=== PATIENT | female | born 1945 | race African-American/Black ===

== ENCOUNTER 2017-09-15 09:33 | Inpatient (IN) | payer OTHER, BC ==
[~2017-09-15] VITALS: Ht 165.1 cm; Wt 61.1 kg
[2017-09-15 10:41] LABS: BASOPHIL (%) 1.1 % (0-1); BASOPHIL COUNT 0.1 K/uL (0-0.1); EOSINOPHIL (%) 2.3 % (0-5); EOSINOPHIL COUNT 0.1 K/uL (0-0.3); HEMATOCRIT 42.8 % (36.0-46.0); HEMOGLOBIN 14.1 G/DL (11.9-15.5); IMMATURE GRANULOCYTE (%) 0.2 % (0.0-0.7); LYMPHOCYTE (%) 36.5 % (15-42); MCH 27.4 PG (29.0-34.0); MCHC 32.9 G/DL (30.0-36.0); MCV 83.1 FL (83-99); MONOCYTE (%) 7.9 % (3-12); MONOCYTE COUNT 0.4 K/uL (0-0.8); NEUTROPHIL COUNT 2.9 K/uL (1.8-6.4); PLATELET COUNT 329 K/uL (156-360); RBC DIS.WIDTH-CV 13.1 % (11.8-14.6); RBC DIS.WIDTH-SD 39.7 % (39-53); RED BLOOD COUNT 5.15 M/uL (3.80-5.20); WHITE BLOOD COUNT 5.5 K/uL (4.1-10.2)
[2017-09-15 10:51] LABS: CHLORIDE 103 mEq/L (99-109); POTASSIUM 3.8 mEq/L (3.7-5.4); SODIUM 140 mEq/L (136-147)
[2017-09-15 10:52] LABS: GLUCOSE 172 mg/dL (70-99)
[2017-09-15 10:56] LABS: CREATININE 0.9 mg/dL (0.6-1.3); GFR ESTIMATE (CALCULATED) > 59 mL/min/
[2017-09-15 10:57] LABS: UREA NITROGEN (BUN) 19 mg/dL (9-23)
[2017-09-15] MEDS ORDERED: TENORETIC 501 TABLET PO (13:04)
[2017-09-15] MEDS ORDERED: ZOCOR20 MG PO (13:04)
[2017-09-15] MEDS ORDERED: LO-DOSE ASPIRIN81 M1 PO (13:05)
[2017-09-15] MEDS ORDERED: NORVASC5 MG PO (13:05)
[2017-09-15] MEDS ORDERED: VITAMIN D31000 UNI2 PO (13:06)
[2017-09-15] MEDS ORDERED: BONIVA150 MG PO (13:07)
[2017-09-15] MEDS ORDERED: NORCO 5/3251 TABLET PO (13:15)
[2017-09-15] MEDS ORDERED: GLUCOPHAGE1000 MG PO (13:16)
[2017-09-15] MEDS ORDERED: CALCIUM 500 +1 EAC2 PO (13:16)
[2017-09-16] VITALS (7 sets, daily range): BP systolic 118–151; BP diastolic 63–82
[2017-09-16 06:52] LABS: HEMOGLOBIN 13.7 G/DL (11.9-15.5); MCH 27.3 PG (29.0-34.0); MCHC 32.6 G/DL (30.0-36.0); MCV 83.7 FL (83-99); PLATELET COUNT 357 K/uL (156-360); RBC DIS.WIDTH-CV 13.2 % (11.8-14.6); RBC DIS.WIDTH-SD 39.8 % (39-53); RED BLOOD COUNT 5.02 M/uL (3.80-5.20); WHITE BLOOD COUNT 8.9 K/uL (4.1-10.2)
[2017-09-16 07:22] LABS: CHLORIDE 102 MEQ/L (99-109); CREATININE 1.2 MG/DL (0.6-1.3); GFR ESTIMATE (CALCULATED) 57 mL/min/; GLUCOSE 227 mg/dL (70-99); POTASSIUM 4.4 MEQ/L (3.7-5.4); SODIUM 137 MEQ/L (136-147)
[2017-09-16 07:23] LABS: UREA NITROGEN (BUN) 33 mg/dL (9-23)
[2017-09-17 03:22] VITALS: BP 120/64
[2017-09-17 07:13] LABS: PTT 24.9 SEC (25-37)
[2017-09-17 07:26] LABS: CHLORIDE 107 MEQ/L (99-109); GFR ESTIMATE (CALCULATED) > 59 mL/min/; GLUCOSE 217 mg/dL (70-99); POTASSIUM 4.3 MEQ/L (3.7-5.4); SODIUM 141 MEQ/L (136-147); UREA NITROGEN (BUN) 30 mg/dL (9-23)
[2017-09-17 07:50] VITALS: BP 134/69
[2017-09-17 11:45] VITALS: BP 146/69
[2017-09-17 16:07] VITALS: BP 146/78
[2017-09-17 19:13] VITALS: BP 117/56
[2017-09-17 23:36] VITALS: BP 104/56
[2017-09-18] VITALS (8 sets, daily range): BP systolic 109–145; BP diastolic 58–77
[2017-09-18 07:38] LABS: CHLORIDE 108 MEQ/L (99-109); GFR ESTIMATE (CALCULATED) > 59 mL/min/; GLUCOSE 209 mg/dL (70-99); POTASSIUM 4.5 MEQ/L (3.7-5.4); SODIUM 142 MEQ/L (136-147); UREA NITROGEN (BUN) 33 mg/dL (9-23)
[2017-09-19 03:17] VITALS: BP 121/67
[2017-09-19 07:15] VITALS: BP 100/75
[2017-09-19 09:38] VITALS: BP 136/68
[2017-09-19 11:00] VITALS: BP 140/73
[2017-09-19] MEDS ORDERED: STIOLTO RESPIMAT4 GM IH (12:31)
[2017-09-19] MEDS ORDERED: BLOOD PRESSURE1 EA11 MC (12:31)
[2017-09-19] MEDS ORDERED: DEXAMETHASONE4 MG PO (12:31)
== END 2017-09-19 15:15 | disposition home or self-care (01) | DRG 54 ==
LOC: EME 09:33 → EDOF 14:03 → 5EAST 14:03 → ENRESERV 14:04 → EDOF 14:14 → ENRESERV 14:16 → 5EAST 19:50
PROVIDERS: Emergency Medicine; Hospitalist; Internal Medicine; Radiology Diagnostic Radiology
PROC: 0BBL3ZX Excision of Left Lung, Percutaneous Approach, Diagnostic (ICD-10-PCS; principal; 2017-09-18)
DX: C79.31 Secondary malignant neoplasm of brain (principal); C34.32 Malignant neoplasm of lower lobe, left bronchus or lung; E11.9 Type 2 diabetes mellitus without complications; I10 Essential (primary) hypertension; R42 Dizziness and giddiness; R11.10 Vomiting, unspecified; E78.5 Hyperlipidemia, unspecified; R91.8 Other nonspecific abnormal finding of lung field; J43.9 Emphysema, unspecified; G93.6 Cerebral edema; Z90.710 Acquired absence of both cervix and uterus; Z87.891 Personal history of nicotine dependence
CPT/HCPCS: 70450; 70553; 71045; 71260; 74177; 77012; 77290; 77307; 77331; 77334; 77412; 77417; 80048; 82948; 85025; 85027; 85610; 85730; 88305; 88341 TC; 88342 TC; 93005; 94640; 94640 76; 99202; 99281; 99285; J1100; J1650; J1815; J1953; J2405; J3010; J7030; J7050; J8540

== ENCOUNTER 2017-10-18 | Inpatient (IN) | payer OTHER, BC ==
[~2017-10-18] VITALS: Ht 165.1 cm; Wt 53.2 kg
[2017-10-18] VITALS (14 sets, daily range): BP systolic 62–142; BP diastolic 40–84
[~2017-10-18] MED LIST: BLOOD PRESSURE1 EA11 MC; BONIVA150 MG PO; CALCIUM 500 +1 EAC2 PO; DEXAMETHASONE4 MG PO; GLUCOPHAGE1000 MG PO; LO-DOSE ASPIRIN81 M1 PO; NORCO 5/3251 TABLET PO; NORVASC5 MG PO; ONDANSETRON HCL8 MG PO; PROCHLORPERAZIN10 MG PO; STIOLTO RESPIMAT4 GM IH; TENORETIC 501 TABLET PO; VITAMIN D31000 UNI2 PO; ZOCOR20 MG PO
[2017-10-18 01:03] LABS: ALBUMIN 2.8 g/dL (3.2-4.8); CHLORIDE 104 mEq/L (99-109); SODIUM 131 mEq/L (136-147)
[2017-10-18 01:06] LABS: GLUCOSE 361 mg/dL (70-99)
[2017-10-18 01:07] LABS: TOTAL BILIRUBIN 0.3 mg/dL (0.0-1.0)
[2017-10-18 01:09] LABS: ALKALINE PHOSPHATASE 75 IU/L (3-129); CREATININE 2.9 mg/dL (0.6-1.3); GFR ESTIMATE (CALCULATED) 20 mL/min/
[2017-10-18 01:10] LABS: TROP-I INTERPRETATION NEGATIVE; TROPONIN-I < 0.01 ng/mL (0.0-0.30); UREA NITROGEN (BUN) 69 mg/dL (9-23)
[2017-10-18 01:11] LABS: AST (GOT) 19 IU/L (2-34)
[2017-10-18 01:12] LABS: ALT (GPT) 27 IU/L (3-49)
[2017-10-18 01:57] LABS: EOSINOPHIL ABS CT 0; HEMATOCRIT 49.7 % (36.0-46.0); MCH 27.3 PG (29.0-34.0); MCHC 30.2 G/DL (30.0-36.0); MCV 90.4 FL (83-99); PLAT.SUFFICIENCY ADEQUATE; PLATELET COUNT 242 K/uL (156-360); RBC DIS.WIDTH-CV 14.8 % (11.8-14.6); WHITE BLOOD COUNT 1.1 K/uL (4.1-10.2)
[2017-10-18 03:14] LABS: POTASSIUM 6.2 mEq/L (3.7-5.4)
[2017-10-18 06:02] LABS: CHLORIDE 112 mEq/L (99-109); POTASSIUM 5.5 mEq/L (3.7-5.4)
[2017-10-18 06:04] LABS: GLUCOSE 203 mg/dL (70-99)
[2017-10-18 06:09] LABS: UREA NITROGEN (BUN) 66 mg/dL (9-23)
[2017-10-18 06:15] LABS: APPEARANCE CLOUDY ((CLEAR)); BILIRUBIN NEGATIVE; BLOOD LARGE; COLOR AMBER ((YELLOW)); GLUCOSE (STRIP) 50; KETONES NEGATIVE; LEUKOCYTES MODERATE; NITRITE NEGATIVE; PROTEIN (STRIP) 100; UROBILINOGEN 0.2 MG/DL (0.2-1.0)
[2017-10-18 06:23] LABS: CREATININE 2.4 mg/dL (0.6-1.3); GFR ESTIMATE (CALCULATED) 25 mL/min/; SODIUM 139 mEq/L (136-147)
[2017-10-18 06:36] LABS: RED BLOOD CELLS 20-30 /HPF (0-5); WHITE BLOOD CELLS 30-40 /HPF (0-5)
[2017-10-18 06:37] LABS: BACTERIA 3+ /HPF; EPITHELIAL CELLS 1+ /HPF; MUCUS 1+ /LPF; UCUL ADDED? YES
[2017-10-18 06:39] LABS: AMORPHOUS URATES CRYSTALS 1+
[2017-10-18] MEDS ORDERED: DECADRON4 M1 PO (11:10)
[2017-10-18 12:35] LABS: CHLORIDE 111 MEQ/L (99-109); GFR ESTIMATE (CALCULATED) 31 mL/min/; GLUCOSE 234 mg/dL (70-99); PHOSPHORUS 4.6 mg/dL (2.5-4.9); POTASSIUM 5.3 MEQ/L (3.7-5.4); SODIUM 139 MEQ/L (136-147); UREA NITROGEN (BUN) 58 mg/dL (9-23)
[2017-10-18 12:44] LABS: CARBON DIOXIDE (BICARBONATE) < 10.0 MEQ/L (20-31)
[2017-10-18 17:08] LABS: CHLORIDE 115 MEQ/L (99-109); GFR ESTIMATE (CALCULATED) 31 mL/min/; GLUCOSE 147 mg/dL (70-99); PHOSPHORUS 4.2 mg/dL (2.5-4.9); SODIUM 144 MEQ/L (136-147); UREA NITROGEN (BUN) 57 mg/dL (9-23)
[2017-10-18 21:00] LABS: CHLORIDE 117 MEQ/L (99-109); CREATININE 1.9 MG/DL (0.6-1.3); GFR ESTIMATE (CALCULATED) 33 mL/min/; GLUCOSE 188 mg/dL (70-99); PHOSPHORUS 3.7 mg/dL (2.5-4.9); POTASSIUM 4.9 MEQ/L (3.7-5.4); SODIUM 142 MEQ/L (136-147); UREA NITROGEN (BUN) 57 mg/dL (9-23)
[2017-10-19] VITALS (32 sets, daily range): BP systolic 72–119; BP diastolic 39–78
[2017-10-19 01:10] LABS: CHLORIDE 117 mEq/L (99-109); POTASSIUM 4.8 mEq/L (3.7-5.4); SODIUM 141 mEq/L (136-147)
[2017-10-19 01:12] LABS: GLUCOSE 218 mg/dL (70-99)
[2017-10-19 01:16] LABS: CREATININE 1.6 mg/dL (0.6-1.3); GFR ESTIMATE (CALCULATED) 41 mL/min/
[2017-10-19 01:17] LABS: UREA NITROGEN (BUN) 55 mg/dL (9-23)
[2017-10-19 04:50] LABS: HEMATOCRIT 33.6 % (36.0-46.0); HEMOGLOBIN 11.4 G/DL (11.9-15.5); MCH 27.5 PG (29.0-34.0); MCHC 33.9 G/DL (30.0-36.0); RBC DIS.WIDTH-CV 14.5 % (11.8-14.6); RBC DIS.WIDTH-SD 42.1 % (39-53); RED BLOOD COUNT 4.15 M/uL (3.80-5.20)
[2017-10-19 05:20] LABS: CHLORIDE 116 mEq/L (99-109); POTASSIUM 4.5 mEq/L (3.7-5.4); SODIUM 139 mEq/L (136-147)
[2017-10-19 05:22] LABS: GLUCOSE 373 mg/dL (70-99)
[2017-10-19 05:25] LABS: PHOSPHORUS 3.4 mg/dL (2.5-4.9)
[2017-10-19 05:26] LABS: CREATININE 1.5 mg/dL (0.6-1.3); GFR ESTIMATE (CALCULATED) 44 mL/min/
[2017-10-19 05:27] LABS: UREA NITROGEN (BUN) 51 mg/dL (9-23)
[2017-10-19 07:06] LABS: ABS NEUTROPHIL COUNT 0.7; ANISOCYTOSIS 1+; BURR CELLS 2+; EOSINOPHIL ABS CT 0; MONOCYTES 5.9 % (0-9.0); MYELOCYTES 6.9 %; PLAT.SUFFICIENCY ADEQUATE; POIKILOCYTOSIS 2+
[2017-10-19 07:07] LABS: BAND NEUTROPHILS 40.6 % (0-8.0); LYMPHOCYTES 6.9 % (15.0-45.0); SEG.NEUTROPHILS 32.7 % (46.0-76.0)
[2017-10-19 08:27] LABS: CHLORIDE 118 MEQ/L (99-109); CREATININE 1.5 MG/DL (0.6-1.3); GFR ESTIMATE (CALCULATED) 44 mL/min/; GLUCOSE 215 mg/dL (70-99); PHOSPHORUS 3.1 mg/dL (2.5-4.9); POTASSIUM 4.2 MEQ/L (3.7-5.4); SODIUM 144 MEQ/L (136-147); UREA NITROGEN (BUN) 46 mg/dL (9-23)
[2017-10-19 10:20] LABS: HEMOGLOBIN A1c (GLYCOHEMOGLOB) 11.1 % (Below 5.7)
[2017-10-19 12:53] LABS: CHLORIDE 115 MEQ/L (99-109); CREATININE 1.3 MG/DL (0.6-1.3); GFR ESTIMATE (CALCULATED) 52 mL/min/; GLUCOSE 264 mg/dL (70-99); MAGNESIUM 1.3 mg/dl (1.3-2.7); POTASSIUM 4.2 MEQ/L (3.7-5.4); SODIUM 142 MEQ/L (136-147); UREA NITROGEN (BUN) 42 mg/dL (9-23)
[2017-10-19 13:37] LABS: C DIFF TOXIN NEGATIVE (NEGATIVE)
[2017-10-19 16:55] LABS: CHLORIDE 111 MEQ/L (99-109); CREATININE 1.2 MG/DL (0.6-1.3); GFR ESTIMATE (CALCULATED) 57 mL/min/; GLUCOSE 296 mg/dL (70-99); MAGNESIUM 1.6 mg/dl (1.3-2.7); PHOSPHORUS 2.8 mg/dL (2.5-4.9); POTASSIUM 3.7 MEQ/L (3.7-5.4); SODIUM 140 MEQ/L (136-147); UREA NITROGEN (BUN) 39 mg/dL (9-23)
[2017-10-20] VITALS (21 sets, daily range): BP systolic 79–127; BP diastolic 50–79
[2017-10-20 05:13] LABS: CHLORIDE 115 mEq/L (99-109); POTASSIUM 3.7 mEq/L (3.7-5.4); SODIUM 140 mEq/L (136-147)
[2017-10-20 05:14] LABS: MAGNESIUM 1.6 mg/dL (1.3-2.7)
[2017-10-20 05:15] LABS: GLUCOSE 267 mg/dL (70-99)
[2017-10-20 05:19] LABS: CREATININE 1.1 mg/dL (0.6-1.3); GFR ESTIMATE (CALCULATED) > 59 mL/min/; PHOSPHORUS 2.7 mg/dL (2.5-4.9)
[2017-10-20 05:20] LABS: UREA NITROGEN (BUN) 37 mg/dL (9-23)
[2017-10-20 05:33] LABS: HEMOGLOBIN 10.9 G/DL (11.9-15.5); MCH 27.5 PG (29.0-34.0); MCHC 34.1 G/DL (30.0-36.0); MCV 80.8 FL (83-99); RBC DIS.WIDTH-CV 13.8 % (11.8-14.6); RBC DIS.WIDTH-SD 40.8 % (39-53); RED BLOOD COUNT 3.96 M/uL (3.80-5.20)
[2017-10-20 06:00] LABS: WHITE BLOOD COUNT 1.8 K/uL (4.1-10.2)
[2017-10-20 07:22] LABS: ABS NEUTROPHIL COUNT 1.2; ANISOCYTOSIS 1+; BAND NEUTROPHILS 40.4 % (0-8.0); EOSINOPHIL ABS CT 0; GIANT PLATELETS 2+; LYMPHOCYTES 7.1 % (15.0-45.0); MICROCYTOSIS 1+; PLAT.SUFFICIENCY DECREASED; PLATELET CLUMPS PRESENT - PLATELET COUNTS APPEARS DECREASED; SEG.NEUTROPHILS 28.3 % (46.0-76.0)
[2017-10-20 07:23] LABS: MONOCYTES 17.2 % (0-9.0); PLATELET COUNT UNABLE TO REPORT K/uL (156-360)
[2017-10-21] VITALS (18 sets, daily range): BP systolic 96–141; BP diastolic 59–104
[2017-10-21 11:22] LABS: HEMATOCRIT 30.5 % (36.0-46.0); HEMOGLOBIN 10.1 G/DL (11.9-15.5); MCH 26.4 PG (29.0-34.0); MCHC 33.1 G/DL (30.0-36.0); MCV 79.6 FL (83-99); NRBC (%) 1.3 /100 WBC (0-0); RBC DIS.WIDTH-CV 14.3 % (11.8-14.6); RED BLOOD COUNT 3.83 M/uL (3.80-5.20)
[2017-10-21 11:30] LABS: CHLORIDE 115 MEQ/L (99-109); GFR ESTIMATE (CALCULATED) > 59 mL/min/; GLUCOSE 196 mg/dL (70-99); SODIUM 140 MEQ/L (136-147); UREA NITROGEN (BUN) 27 mg/dL (9-23)
[2017-10-21 11:39] LABS: PLAT.SUFFICIENCY DECREASED; PLATELET CLUMPS PRESENT - PLATELET COUNTS APPEARS DECREASED; PLATELET COUNT UNABLE TO REPORT K/uL (156-360)
[2017-10-21 14:25] LABS: MAGNESIUM 2.1 mg/dl (1.3-2.7); PHOSPHORUS 1.7 mg/dL (2.5-4.9)
[2017-10-21 14:39] LABS: ALBUMIN < 1.5 G/DL (3.2-4.8)
[2017-10-22] VITALS (8 sets, daily range): BP systolic 105–126; BP diastolic 56–86
[2017-10-22 06:35] LABS: ALBUMIN 1.7 G/DL (3.2-4.8); ALKALINE PHOSPHATASE 65 IU/L (3-129); ALT (GPT) 13 IU/L (3-49); AST (GOT) 8 IU/L (2-34); CHLORIDE 115 MEQ/L (99-109); CREATININE 1.2 MG/DL (0.6-1.3); GFR ESTIMATE (CALCULATED) 57 mL/min/; GLUCOSE 170 mg/dL (70-99); POTASSIUM 3.2 MEQ/L (3.7-5.4); SODIUM 142 MEQ/L (136-147); TOTAL BILIRUBIN 0.3 MG/DL (0.0-1.0); TOTAL PROTEIN 3.7 G/DL (6.4-8.3); UREA NITROGEN (BUN) 31 mg/dL (9-23)
[2017-10-22 06:38] LABS: HEMATOCRIT 37.1 % (36.0-46.0); MCH 26.7 PG (29.0-34.0); MCHC 32.9 G/DL (30.0-36.0); MCV 81.2 FL (83-99); NRBC (%) 1.5 /100 WBC (0-0); RBC DIS.WIDTH-CV 14.6 % (11.8-14.6); RBC DIS.WIDTH-SD 42.8 % (39-53); RED BLOOD COUNT 4.57 M/uL (3.80-5.20); WHITE BLOOD COUNT 3.3 K/uL (4.1-10.2)
[2017-10-22 06:44] LABS: HEMOGLOBIN 12.2 G/DL (11.9-15.5); PLATELET COUNT 63 K/uL (156-360)
[2017-10-22 07:02] LABS: MAGNESIUM 2.1 mg/dl (1.3-2.7)
[2017-10-22 07:03] LABS: PHOSPHORUS 2.3 mg/dL (2.5-4.9)
[2017-10-22 07:10] LABS: ABS NEUTROPHIL COUNT 1.9; BURR CELLS 2+; EOSINOPHIL ABS CT 0; METAMYELOCYTES 5.3 %; MONOCYTES 17.9 % (0-9.0); MYELOCYTES 0.9 %; NUCLEATED RBC'S 7.1; PLAT.SUFFICIENCY DECREASED; POIKILOCYTOSIS 2+
[2017-10-22 07:13] LABS: BAND NEUTROPHILS 8.9 % (0-8.0)
[2017-10-23 03:23] VITALS: BP 115/78
[2017-10-23 06:32] LABS: CHLORIDE 116 MEQ/L (99-109); PHOSPHORUS 2.6 mg/dL (2.5-4.9); SODIUM 143 MEQ/L (136-147); UREA NITROGEN (BUN) 41 mg/dL (9-23)
[2017-10-23 06:34] LABS: CREATININE 1.8 MG/DL (0.6-1.3); GFR ESTIMATE (CALCULATED) 36 mL/min/; GLUCOSE 309 mg/dL (70-99); POTASSIUM 3.9 MEQ/L (3.7-5.4)
[2017-10-23 06:52] LABS: HEMATOCRIT 34.2 % (36.0-46.0); MCH 26.6 PG (29.0-34.0); MCHC 32.2 G/DL (30.0-36.0); MCV 82.6 FL (83-99); NRBC (%) 0.6 /100 WBC (0-0); RBC DIS.WIDTH-CV 15.1 % (11.8-14.6); RBC DIS.WIDTH-SD 45.1 % (39-53); RED BLOOD COUNT 4.14 M/uL (3.80-5.20); WHITE BLOOD COUNT 3.3 K/uL (4.1-10.2)
[2017-10-23 07:10] LABS: ABS NEUTROPHIL COUNT 2.2; ANISOCYTOSIS 1+; ATYPICAL LYMPHOCYTE 1.8 %; BAND NEUTROPHILS 43.5 % (0-8.0); EOSINOPHIL ABS CT 0; IMM.PLATELET FRACTION 16.5 (1-7); LYMPHOCYTES 10.4 % (15.0-45.0); METAMYELOCYTES 7.8 %; MICROCYTOSIS 1+; MONOCYTES 12.2 % (0-9.0); MYELOCYTES 1.7 %; NUCLEATED RBC'S 3.5; PLAT.SUFFICIENCY VERY DECREASED; PLATELET CLUMPS PRESENT - PLATELET COUNTS APPEARS DECREASED; PLATELET COUNT UNABLE TO REPORT K/uL (156-360); SEG.NEUTROPHILS 22.6 % (46.0-76.0)
[2017-10-23 07:43] VITALS: BP 108/78
[2017-10-23 07:52] LABS: URIC ACID 4.9 mg/dL (3.1-9.2)
[2017-10-23 11:35] VITALS: BP 135/75
[2017-10-23 13:27] LABS: BASE EXCESS -5.1 mEq/L (-3 to +3); BICARBONATE 17.1 mEq/L (22-26); CARBOXY HGB 0 % (0-5); METHEMOGLOBIN 0.8 % (0-1.5); PCO2 24 mm Hg (35-45); PO2 50 mm Hg (80-100); pH 7.46 (7.35-7.45)
[2017-10-23 13:28] LABS: COMMENTS - BLOOD GASES A+C+; DEVICE RA; FI02 21 %; SITE RRA; TOTAL RESP RATE 14 resp/min
[2017-10-23 15:40] VITALS: BP 106/65
[2017-10-23 19:48] VITALS: BP 121/95
[2017-10-23 23:17] VITALS: BP 117/80
[2017-10-24] VITALS (7 sets, daily range): BP systolic 114–123; BP diastolic 62–77
[2017-10-24 07:45] LABS: HEMATOCRIT 31.1 % (36.0-46.0); HEMOGLOBIN 10.4 G/DL (11.9-15.5); MCH 26.7 PG (29.0-34.0); MCHC 33.4 G/DL (30.0-36.0); MCV 79.7 FL (83-99); NRBC (%) 0.8 /100 WBC (0-0); RBC DIS.WIDTH-CV 14.6 % (11.8-14.6); RBC DIS.WIDTH-SD 42.6 % (39-53); WHITE BLOOD COUNT 3.7 K/uL (4.1-10.2)
[2017-10-24 08:02] LABS: ALBUMIN 2.5 G/DL (3.2-4.8); ALKALINE PHOSPHATASE 50 IU/L (3-129); ALT (GPT) 18 IU/L (3-49); CHLORIDE 110 MEQ/L (99-109); CREATININE 1.4 MG/DL (0.6-1.3); DIRECT BILIRUBIN 0.2 mg/dL (0.0-0.3); GFR ESTIMATE (CALCULATED) 47 mL/min/; GLUCOSE 176 mg/dL (70-99); PHOSPHORUS 2.7 mg/dL (2.5-4.9); SODIUM 144 MEQ/L (136-147); UREA NITROGEN (BUN) 32 mg/dL (9-23)
[2017-10-24 08:03] LABS: AST (GOT) 13 IU/L (2-34); MAGNESIUM 1.6 mg/dl (1.3-2.7); POTASSIUM 2.7 MEQ/L (3.7-5.4); TOTAL BILIRUBIN 0.6 MG/DL (0.0-1.0); TOTAL PROTEIN 4.3 G/DL (6.4-8.3)
[2017-10-24 08:35] LABS: ABS NEUTROPHIL COUNT 2.9; ANISOCYTOSIS 1+; ATYPICAL LYMPHOCYTE 3.8 %; BAND NEUTROPHILS 54.7 % (0-8.0); EOSINOPHIL ABS CT 0; IMM.PLATELET FRACTION 20.7 (1-7); LYMPHOCYTES 12.3 % (15.0-45.0); METAMYELOCYTES 3.8 %; MICROCYTOSIS 1+; MYELOCYTES 1.9 %; NUCLEATED RBC'S 0.9; PLAT.SUFFICIENCY DECREASED; PLATELET COUNT 35 K/uL (156-360); POIKILOCYTOSIS 1+; POLYCHROMASIA 1+; SEG.NEUTROPHILS 22.6 % (46.0-76.0); SPHEROCYTES 1+; TARGET CELLS 1+
[2017-10-24 08:36] LABS: MONOCYTES 0.9 % (0-9.0)
[2017-10-24 20:01] LABS: MAGNESIUM 1.7 mg/dl (1.3-2.7)
[2017-10-24 20:10] LABS: POTASSIUM 3.5 MEQ/L (3.7-5.4)
[2017-10-25 05:15] VITALS: BP 145/75
[2017-10-25 06:14] LABS: CHLORIDE 112 MEQ/L (99-109); CREATININE 1.4 MG/DL (0.6-1.3); GFR ESTIMATE (CALCULATED) 47 mL/min/; GLUCOSE 199 mg/dL (70-99); PHOSPHORUS 2.8 mg/dL (2.5-4.9); SODIUM 146 MEQ/L (136-147); UREA NITROGEN (BUN) 36 mg/dL (9-23)
[2017-10-25 06:15] LABS: MAGNESIUM 2.5 mg/dl (1.3-2.7)
[2017-10-25 06:16] LABS: HEMATOCRIT 34.2 % (36.0-46.0); HEMOGLOBIN 11.3 G/DL (11.9-15.5); MCH 26.7 PG (29.0-34.0); MCV 80.9 FL (83-99); NRBC (%) 0.6 /100 WBC (0-0); RBC DIS.WIDTH-CV 14.9 % (11.8-14.6); RBC DIS.WIDTH-SD 43.6 % (39-53); RED BLOOD COUNT 4.23 M/uL (3.80-5.20); WHITE BLOOD COUNT 4.9 K/uL (4.1-10.2)
[2017-10-25 06:38] LABS: ANISOCYTOSIS 1+; ATYPICAL LYMPHOCYTE 3.5 %; EOSINOPHIL ABS CT 0; HYPOCHROMASIA 2+; IMM.PLATELET FRACTION 21.7 (1-7); LYMPHOCYTES 8.7 % (15.0-45.0); MACROCYTES 1+; METAMYELOCYTES 4.4 %; MONOCYTES 2.6 % (0-9.0); NUCLEATED RBC'S 0.9; PLATELET CLUMPS PRESENT - PLATELET COUNTS APPEARS DECREASED; TARGET CELLS 1+
[2017-10-25 06:52] LABS: BAND NEUTROPHILS 19.1 % (0-8.0); PLATELET COUNT UNABLE TO REPORT K/uL (156-360); SEG.NEUTROPHILS 61.7 % (46.0-76.0)
[2017-10-25 07:08] VITALS: BP 118/79
[2017-10-25 12:00] VITALS: BP 122/81
[2017-10-25 16:30] VITALS: BP 143/71
[2017-10-25 20:15] VITALS: BP 115/84
[2017-10-26 00:25] VITALS: BP 106/73
[2017-10-26 05:00] VITALS: BP 110/79
[2017-10-26 06:09] LABS: HEMATOCRIT 32.9 % (36.0-46.0); MCH 27.4 PG (29.0-34.0); MCHC 33.4 G/DL (30.0-36.0); NRBC (%) 0.6 /100 WBC (0-0); RBC DIS.WIDTH-CV 15.4 % (11.8-14.6); RBC DIS.WIDTH-SD 45.5 % (39-53); RED BLOOD COUNT 4.01 M/uL (3.80-5.20); WHITE BLOOD COUNT 5.3 K/uL (4.1-10.2)
[2017-10-26 06:34] LABS: CHLORIDE 116 MEQ/L (99-109); CREATININE 1.4 MG/DL (0.6-1.3); GFR ESTIMATE (CALCULATED) 47 mL/min/; GLUCOSE 158 mg/dL (70-99); MAGNESIUM 2.2 mg/dl (1.3-2.7); SODIUM 146 MEQ/L (136-147); UREA NITROGEN (BUN) 39 mg/dL (9-23)
[2017-10-26 06:50] LABS: ABS NEUTROPHIL COUNT 4.1; ANISOCYTOSIS 1+; BAND NEUTROPHILS 19.8 % (0-8.0); EOSINOPHIL ABS CT 0; IMM.PLATELET FRACTION 20.1 (1-7); LYMPHOCYTES 6.9 % (15.0-45.0); METAMYELOCYTES 4.3 %; MONOCYTES 10.4 % (0-9.0); MYELOCYTES 1.7 %; NUCLEATED RBC'S 0.9; PLAT.SUFFICIENCY VERY DECREASED; SEG.NEUTROPHILS 56.9 % (46.0-76.0)
[2017-10-26 06:52] LABS: PLATELET COUNT 33 K/uL (156-360)
[2017-10-26 07:25] VITALS: BP 146/78
[2017-10-26 11:30] VITALS: BP 136/91
[2017-10-26 15:44] VITALS: BP 123/87
[2017-10-26 20:06] VITALS: BP 130/79
[2017-10-27] VITALS (7 sets, daily range): BP systolic 108–149; BP diastolic 65–88
[2017-10-27 05:59] LABS: CHLORIDE 116 MEQ/L (99-109); CREATININE 1.5 MG/DL (0.6-1.3); GFR ESTIMATE (CALCULATED) 44 mL/min/; GLUCOSE 127 mg/dL (70-99); MAGNESIUM 1.9 mg/dl (1.3-2.7); POTASSIUM 4.2 MEQ/L (3.7-5.4); UREA NITROGEN (BUN) 39 mg/dL (9-23)
[2017-10-27 06:00] LABS: HEMATOCRIT 32.4 % (36.0-46.0); HEMOGLOBIN 10.8 G/DL (11.9-15.5); MCH 27.2 PG (29.0-34.0); MCHC 33.3 G/DL (30.0-36.0); MCV 81.6 FL (83-99); RBC DIS.WIDTH-CV 15.5 % (11.8-14.6); RBC DIS.WIDTH-SD 45.8 % (39-53); RED BLOOD COUNT 3.97 M/uL (3.80-5.20); WHITE BLOOD COUNT 5.5 K/uL (4.1-10.2)
[2017-10-27 06:02] LABS: SODIUM 145 MEQ/L (136-147)
[2017-10-27 06:13] LABS: ABS NEUTROPHIL COUNT 4.2; ANISOCYTOSIS 1+; ATYPICAL LYMPHOCYTE 1.7 %; BAND NEUTROPHILS 17.4 % (0-8.0); EOSINOPHIL ABS CT 0; IMM.PLATELET FRACTION 20.5 (1-7); METAMYELOCYTES 1.7 %; MONOCYTES 13.1 % (0-9.0); NUCLEATED RBC'S 1.7; PLAT.SUFFICIENCY DECREASED; PLATELET COUNT 37 K/uL (156-360); POIKILOCYTOSIS 1+; POLYCHROMASIA 1+; SEG.NEUTROPHILS 59.1 % (46.0-76.0)
[2017-10-28 04:56] VITALS: BP 135/81
[2017-10-28 06:00] LABS: CHLORIDE 117 MEQ/L (99-109); CREATININE 1.5 MG/DL (0.6-1.3); GFR ESTIMATE (CALCULATED) 44 mL/min/; GLUCOSE 126 mg/dL (70-99); POTASSIUM 4.8 MEQ/L (3.7-5.4); SODIUM 148 MEQ/L (136-147); UREA NITROGEN (BUN) 41 mg/dL (9-23)
[2017-10-28 06:05] LABS: HEMATOCRIT 32.4 % (36.0-46.0); HEMOGLOBIN 10.7 G/DL (11.9-15.5); MCH 27.4 PG (29.0-34.0); MCV 82.9 FL (83-99); NRBC (%) 0.4 /100 WBC (0-0); RBC DIS.WIDTH-SD 47.5 % (39-53); RED BLOOD COUNT 3.91 M/uL (3.80-5.20); WHITE BLOOD COUNT 5.3 K/uL (4.1-10.2)
[2017-10-28 06:25] LABS: ABS NEUTROPHIL COUNT 3.8; ACANTHOCYTES 1+; BAND NEUTROPHILS 6.4 % (0-8.0); BURR CELLS 1+; EOSINOPHIL ABS CT 0; HELMET CELLS 1+; LYMPHOCYTES 13.6 % (15.0-45.0); METAMYELOCYTES 4.5 %; MYELOCYTES 0.9 %; NUCLEATED RBC'S 1.8; PLAT.SUFFICIENCY VERY DECREASED; PLATELET COUNT 45 K/uL (156-360); POLYCHROMASIA 1+; SEG.NEUTROPHILS 64.6 % (46.0-76.0); TARGET CELLS 1+
[2017-10-28 07:40] VITALS: BP 124/73
[2017-10-28 16:52] VITALS: BP 133/73
[2017-10-29 00:51] VITALS: BP 113/67
[2017-10-29 04:44] VITALS: BP 135/72
[2017-10-29 06:09] LABS: HEMATOCRIT 30.9 % (36.0-46.0); HEMOGLOBIN 10.1 G/DL (11.9-15.5); MCH 27.2 PG (29.0-34.0); MCHC 32.7 G/DL (30.0-36.0); MCV 83.1 FL (83-99); NRBC (%) 0.5 /100 WBC (0-0); RBC DIS.WIDTH-CV 16.1 % (11.8-14.6); RBC DIS.WIDTH-SD 47.8 % (39-53); RED BLOOD COUNT 3.72 M/uL (3.80-5.20)
[2017-10-29 06:29] LABS: CHLORIDE 114 MEQ/L (99-109); CREATININE 1.3 MG/DL (0.6-1.3); GFR ESTIMATE (CALCULATED) 52 mL/min/; POTASSIUM 4.5 MEQ/L (3.7-5.4); SODIUM 145 MEQ/L (136-147); UREA NITROGEN (BUN) 37 mg/dL (9-23)
[2017-10-29 06:36] LABS: GLUCOSE 241 mg/dL (70-99)
[2017-10-29 07:26] LABS: ABS NEUTROPHIL COUNT 5.3; ANISOCYTOSIS 1+; EOSINOPHIL ABS CT 0; IMM.PLATELET FRACTION 15.2 (1-7); LYMPHOCYTES 2.6 % (15.0-45.0); METAMYELOCYTES 2.6 %; MICROCYTOSIS 1+; MONOCYTES 4.4 % (0-9.0); MYELOCYTES 1.8 %; NUCLEATED RBC'S 2.6; PLAT.SUFFICIENCY DECREASED; PLATELET COUNT 56 K/uL (156-360); SEG.NEUTROPHILS 53.5 % (46.0-76.0)
[2017-10-29 07:42] LABS: BAND NEUTROPHILS 35.1 % (0-8.0)
[2017-10-29 07:45] VITALS: BP 149/85
[2017-10-29 11:23] VITALS: BP 126/72
[2017-10-29 14:49] VITALS: BP 126/88
[2017-10-29 15:35] LABS: BASE EXCESS -6.2 mEq/L (-3 to +3); BICARBONATE 17.3 mEq/L (22-26); CARBOXY HGB 0 % (0-5); COMMENTS - BLOOD GASES A+C+; METHEMOGLOBIN 0.7 % (0-1.5); O2 FLOW 15 L/MIN; PCO2 28 mm Hg (35-45); PO2 46 mm Hg (80-100); SITE LR
[2017-10-29 15:36] LABS: DEVICE HIGH FLOW NC; TOTAL RESP RATE 24 resp/min
[2017-10-29 18:27] LABS: BASE EXCESS -2.8 mEq/L (-3 to +3); BICARBONATE 20.4 mEq/L (22-26); CARBOXY HGB 0 % (0-5); COMMENTS - BLOOD GASES A+C+; DEVICE HEATED HIGH FLOW; FI02 100 %; METHEMOGLOBIN 0.8 % (0-1.5); O2 FLOW 60 L/MIN; PCO2 30 mm Hg (35-45); PO2 45 mm Hg (80-100); SITE LR; TOTAL RESP RATE 32 resp/min; pH 7.44 (7.35-7.45)
[2017-10-29 21:09] VITALS: BP 109/75
[2017-10-30 00:04] VITALS: BP 99/75
[2017-10-30 04:28] VITALS: BP 117/88
[2017-10-30 06:42] LABS: CHLORIDE 114 MEQ/L (99-109); CREATININE 1.2 MG/DL (0.6-1.3); GFR ESTIMATE (CALCULATED) 57 mL/min/; GLUCOSE 157 mg/dL (70-99); HEMATOCRIT 34.4 % (36.0-46.0); MCH 26.1 PG (29.0-34.0); MCV 81.7 FL (83-99); NRBC (%) 0.6 /100 WBC (0-0); POTASSIUM 4.1 MEQ/L (3.7-5.4); RBC DIS.WIDTH-CV 16.1 % (11.8-14.6); RBC DIS.WIDTH-SD 47.8 % (39-53); RED BLOOD COUNT 4.21 M/uL (3.80-5.20); SODIUM 147 MEQ/L (136-147); UREA NITROGEN (BUN) 34 mg/dL (9-23)
[2017-10-30 07:45] VITALS: BP 127/82
[2017-10-30 08:02] LABS: ABS NEUTROPHIL COUNT 6.1; ANISOCYTOSIS 1+; BASOPHILS 0.9 %; EOSINOPHIL ABS CT 0; LYMPHOCYTES 4.4 % (15.0-45.0); METAMYELOCYTES 0.9 %; MONOCYTES 4.3 % (0-9.0); MYELOCYTES 1.7 %; NUCLEATED RBC'S 2.6; PLAT.SUFFICIENCY DECREASED
[2017-10-30 08:03] LABS: BAND NEUTROPHILS 12.2 % (0-8.0); SEG.NEUTROPHILS 75.6 % (46.0-76.0)
[2017-10-30 08:17] LABS: PLATELET COUNT 76 K/uL (156-360)
[2017-10-30 12:23] VITALS: BP 120/69
[2017-10-30 19:00] VITALS: BP 106/57
[2017-10-30 23:00] VITALS: BP 110/70
[2017-10-31 03:30] VITALS: BP 143/93
[2017-10-31 07:05] LABS: HEMATOCRIT 32.5 % (36.0-46.0); HEMOGLOBIN 10.6 G/DL (11.9-15.5); MCH 27.2 PG (29.0-34.0); MCHC 32.6 G/DL (30.0-36.0); MCV 83.5 FL (83-99); NRBC (%) 0.9 /100 WBC (0-0); PLATELET COUNT 99 K/uL (156-360); RBC DIS.WIDTH-CV 16.3 % (11.8-14.6); RBC DIS.WIDTH-SD 48.8 % (39-53); RED BLOOD COUNT 3.89 M/uL (3.80-5.20); WHITE BLOOD COUNT 7.6 K/uL (4.1-10.2)
[2017-10-31 07:17] LABS: CHLORIDE 113 MEQ/L (99-109); CREATININE 1.4 MG/DL (0.6-1.3); GFR ESTIMATE (CALCULATED) 47 mL/min/; GLUCOSE 229 mg/dL (70-99); POTASSIUM 4.4 MEQ/L (3.7-5.4); SODIUM 150 MEQ/L (136-147); UREA NITROGEN (BUN) 40 mg/dL (9-23)
[2017-10-31 07:23] LABS: PHOSPHORUS 5.6 mg/dL (2.5-4.9)
[2017-10-31 07:43] LABS: ABS NEUTROPHIL COUNT 6.1; ANISOCYTOSIS 1+; BAND NEUTROPHILS 21.9 % (0-8.0); EOSINOPHIL ABS CT 0; LYMPHOCYTES 7.9 % (15.0-45.0); METAMYELOCYTES 6.1 %; MICROCYTOSIS 1+; MONOCYTES 4.4 % (0-9.0); MYELOCYTES 0.9 %; NUCLEATED RBC'S 1.8; SEG.NEUTROPHILS 58.8 % (46.0-76.0)
[2017-10-31 09:19] VITALS: BP 143/89
== END 2017-11-01 15:44 | DRG 871 ==
LOC: EME → EDBD → EME → 4WEST 05:10 → EDOF 05:10 → 4EAST 05:10 → ENRESERV 05:11 → 4WEST 07:16 → ENRESERV 10-21 08:44 → CANRESERV 10-21 08:44 → ENRESERV 10-21 17:47 → 4EAST 10-21 18:26 → CANRESERV 11-01 01:40 → ENRESERV 11-01 01:40 → 4EAST 11-01 15:44
PROVIDERS: Emergency Medicine; Internal Medicine; Internal Medicine Critical Care Medicine; Internal Medicine Nephrology; Obstetrics & Gynecology; Specialist; Student in an Organized Health Care Education/Training Program
DX: A41.9 Sepsis, unspecified organism (principal); N30.80 Other cystitis without hematuria; B96.1 Klebsiella pneumoniae [K. pneumoniae] as the cause of diseases classified elsewhere; K56.600 Partial intestinal obstruction, unspecified as to cause; E11.10 Type 2 diabetes mellitus with ketoacidosis without coma; N17.9 Acute kidney failure, unspecified; E83.51 Hypocalcemia; E86.0 Dehydration; E86.1 Hypovolemia; E87.5 Hyperkalemia; C79.31 Secondary malignant neoplasm of brain; E88.09 Other disorders of plasma-protein metabolism, not elsewhere classified; D70.3 Neutropenia due to infection; E87.3 Alkalosis; E87.70 Fluid overload, unspecified; D69.6 Thrombocytopenia, unspecified; E11.649 Type 2 diabetes mellitus with hypoglycemia without coma; E87.0 Hyperosmolality and hypernatremia; E87.6 Hypokalemia; J96.01 Acute respiratory failure with hypoxia; I82.621 Acute embolism and thrombosis of deep veins of right upper extremity; B37.0 Candidal stomatitis; I47.1 Supraventricular tachycardia; C34.32 Malignant neoplasm of lower lobe, left bronchus or lung; J98.11 Atelectasis; R50.81 Fever presenting with conditions classified elsewhere; E78.5 Hyperlipidemia, unspecified; I10 Essential (primary) hypertension; F41.9 Anxiety disorder, unspecified; M81.0 Age-related osteoporosis without current pathological fracture; Z51.5 Encounter for palliative care; Z66 Do not resuscitate; Z79.84 Long term (current) use of oral hypoglycemic drugs; Z79.82 Long term (current) use of aspirin; Z90.3 Acquired absence of stomach [part of]; Z92.3 Personal history of irradiation; Z87.891 Personal history of nicotine dependence
CPT/HCPCS: 36600; 70450; 71045; 71046; 74018; 74176; 80048; 80048 91; 80053; 80069; 80076; 81003; 82010; 82040; 82330; 82803; 82948; 83036; 83605; 83735; 84100; 84132 91; 84484; 84550; 84999; 85007 GA; 85025; 85025 GA; 85027; 85049; 87040; 87077; 87086; 87102; 87186; 87493; 87641; 93005; 93041; 93306; 93971; 94640; 94640 76; 94760; 94799; 97530 GO; 97530 GP; 99202; 99281; 99285; A6214; C1753; J0610; J1100; J1160; J1447; J1450; J1650; J1815; J1940; J2270; J2405; J2543; J3370; J3475; J3480; J7030; J7040; J7050; J7070; J7120; P9047